=== PATIENT | female | born 1965 | race African-American/Black ===

== ENCOUNTER 2017-03-28 09:41 | Outpatient (CLI) ==
[2016-07-17 09:09] VITALS: BMI 24.9
[2017-03-28 10:15] LABS: BASOPHILS # (AUTO) 0.1 K/uL (0-0.2); BASOPHILS % (AUTO) 0.6 % (0.0-3.0); EOSINOPHILS # (AUTO) 0.3 K/ul (0.0-0.7); HEMATOCRIT 39.1 % (37.0-47.0); IMMATURE GRANULOCYTE % (AUTO) 0.4 % (0.0-5.0); LYMPHOCYTES % (AUTO) 24.4 (10.0-50.0); MEAN CORPUSCULAR HEMOGLOBIN 28.1 pg (27.0-31.0); MEAN CORPUSCULAR HGB CONC 33.2 (31.8-35.4); MEAN CORPUSCULAR VOLUME 84.6 fl (81.0-99.0); MONOCYTES # (AUTO) 0.5 K/uL (0.4-2.0); MONOCYTES % (AUTO) 5.7 (0-10); NEUTROPHILS # (AUTO) 5.4 K/ul (2.0-6.9); NEUTROPHILS % (AUTO) 65.9; PLATELET COUNT 325 10^3/uL (140-440); RED BLOOD COUNT 4.62 10^6/ul (4.20-5.40)
--- NOTE | 2017-03-28 10:19 | DI ---
EXAM: Chest two view, frontal and lateral views. HISTORY: Hypertension. COMPARISON: 07/17/2016. FINDINGS: The heart size is normal. Atherosclerotic calcifications noted. There is no pulmonary v ascular congestion. The lungs are clear. No pleural effusion or pneumothorax is seen. No acute os seous abnormality identified. Cholecystectomy clips noted. Since the prior study, there has been no significant interval change. IMPRESSION: No acute cardiopulmonary process.
[2017-03-28 11:04] LABS: ALBUMIN 4.1 g/dL (3.4-5.0); ALBUMIN/GLOBULIN RATIO 0.93; ANION GAP 15.9; BILIRUBIN,TOTAL 0.43 mg/dL (0.00-1.20); BUN/CREATININE RATIO 10.96; CALCIUM 10.2 mg/dL (8.2-10.2); CHOL/HDL RATIO 3.6 (4.5-5.5); CREATININE 1.55 mg/dL (0.60-1.30); POTASSIUM 3.9 mmol/L (3.5-5.10); TOTAL PROTEIN 8.5 g/dL (6.4-8.2)
== END 2017-03-28 09:42 | disposition home or self-care (01) ==
LOC: RAD 09:41
PROVIDERS: ATTEND Nurse Practitioner Family
DX: I10 Essential (primary) hypertension (principal); R42 Dizziness and giddiness; R11.2 Nausea with vomiting, unspecified; D64.9 Anemia, unspecified; E78.5 Hyperlipidemia, unspecified
CPT/HCPCS: 36415; 80053; 80061; 82150; 83690; 84439; 84443; 85025; 93005; 93010

== ENCOUNTER 2017-04-02 06:48 | Outpatient (CLI) ==
[2016-07-17 09:09] VITALS: BMI 24.9
--- NOTE | 2017-04-02 09:35 | STRESSECHO ---
Date of Test: 04/02/17 Reason for Exam: ABNORMAL EKG, T-WAVE ABNORMALITY, HTN , CHF Ordering Physician: Sarah WHITMAN Current Medications: HYDROXYZINE, MECLIZINE, PROMETHAZINE, LISINOPRIL, AMLODIPINE Resting EKG: SINUS RHYTHM/STRAIN PATTERN Target Heart Rate: 142/168 STAGE MPH/GRADE HEART RATE BPM BLOOD PRESSURE mmhg RHYTHM S-T SEGMENT +/- UP DOWN SYMPTOMS,COMMENTS At Rest 85 118/82 SR X NONE 1 1.7/10% 2 2.5/12% 3 3.4/14% 4 4.2/16% 5 5.0/18% Immediately after 144 148/90 SR X SHORT OF BREATH/FATIGUE Durations of Exercise: 3:00 Maximum Heart Rate Reached: 122 Reason for Termination: SHORT OF BREATH/FATIGUE 3 MIN POST EXERCISE: HR 122 BPM, BP 140/82 MMHG INTERPRETATION: 98% OXYGEN SATURATION WITH EXERCISE ON ROOM AIR 1. INCONCLUSIVE FOR ISCHEMIC ST-T WAVE CHANGES PATIENT HAS BASELINE ABNORMAL ST-T WAVE 2. POOR EXERCISE TOLERANCE 3. NO CHEST PAIN OR DISCOMFORT 4. NO ARRHYTHMIAS 5. BLOOD PRESSURE RESPONSE: ADEQUATE LEFT VENTRICULAR CONTRACTILITY--MILDLY HYPOKINETIC LEFT VENTRICLE AT REST AND WITH EXERCISE RECOMMEND: STRESS ECHO SESTAMIBI AND 2 "D" "M" MODE ECHO MTDD
--- NOTE | 2017-04-02 09:42 | ECHOSTRESS ---
Date of Exam: 04/02/17 Ordering Physician:LEEANN WATTS Reason for Echo: ABNORMAL EKG-T WAVE ABNORMALITY--STRESS TEST--INCONCLUSIVE M-Mode Normal Adult Results LV Dimensions Normal Adult Results AoV Opening excursions >1.6 LVEDD-base- 3.5-5.8 Ao root dimensions 2.0-3.7 LVESD-base- 3.1-4.6 L. Atrium dimensions 1.9-3.8 Post. Wall thickness 0.8-1.1 IV septum (thickness) 0.7-1.2 Post. Wall excursion 0.72-1.3 Septal motion Systolic motion R. Ventricular cavity 1.5-2.0 LVEF 60% Paradoxical septal wall motion 2-D: LEFT VENTRICULAR CONTRACTILITY--MILDLY HYPOKINETIC LEFT VENTRICLE AT REST AND WITH EXERCISE M-MODE: MV: AV: TV: PV: CHAMBER SIZE: WALL MOTION: LEFT VENTRICULAR CONTRACTILITY--MILDLY HYPOKINETIC LEFT VENTRICLE AT REST AND WITH EXERCISE PERICARDIUM: INTERPRETATION: 1. LEFT VENTRICULAR CONTRACTILITY--MILDLY HYPOKINETIC LEFT VENTRICLE AT REST AND WITH EXERCISE MTDD
== END 2017-04-02 06:49 | disposition home or self-care (01) ==
LOC: CAR 06:48
PROVIDERS: ATTEND Nurse Practitioner Family
DX: R94.31 Abnormal electrocardiogram [ECG] [EKG] (principal)

== ENCOUNTER 2017-04-07 06:34 | Outpatient (CLI) ==
[2016-07-17 09:09] VITALS: BMI 24.9
== END 2017-04-07 06:35 ==
LOC: CAR 06:34
PROVIDERS: ATTEND Nurse Practitioner Family
DX: R94.39 Abnormal result of other cardiovascular function study (principal)

== ENCOUNTER 2017-04-11 06:29 | Outpatient (CLI) ==
[2016-07-17 09:09] VITALS: BMI 24.9
--- NOTE | 2017-04-11 10:51 | NM ---
EXAM: Myocardial perfusion imaging HISTORY: Abnormal echocardiogram COMPARISON: None. TECHNIQUE: Patient was injected 4.2 mCi of thallium 201 chloride intravenously while at rest. SPECT imaging of the heart was acquired. Patient was stressed on a treadmill using Jerry protocol and at peak exercise injected 25.1 mCi of Tc99m Sestamibi intravenously. Another SPECT imaging of the hea rt was then acquired. Gated cardiac study was performed. FINDINGS: Post stress images show mildly prominent left ventricular cavity. There is moderately red uced perfusion in the region of the left ventricle apex and adjacent inferior wall which shows reper fusion on delayed imaging consistent with reversible ischemia. Inferior wall, septum and lateral wa lls show normal perfusion. No fixed defect is visualized. Left ventricular ejection fraction is 44 %. Mild generalized hypokinesis noted. IMPRESSION: 1. SPECT myocardial imaging shows exercise-induced reversible ischemia involving the left ventricle apex and contiguous anterior wall. 2. Left ventricular ejection fraction of 44%. Mild hypokinesis.
--- NOTE | 2017-04-14 12:47 | ECHOSTRESS ---
Date of Exam: 04/11/17 Ordering Physician: LEEANN WHITMAN Reason for Echo: ABNORMAL STRESS, T-WAVE ABNORMALITY, HYPERTENSION, CHF, STRESS TEST--INCONCLUSIVE M-Mode Normal Adult Results LV Dimensions Normal Adult Results AoV Opening excursions >1.6 LVEDD-base- 3.5-5.8 Ao root dimensions 2.0-3.7 LVESD-base- 3.1-4.6 L. Atrium dimensions 1.9-3.8 Post. Wall thickness 0.8-1.1 IV septum (thickness) 0.7-1.2 Post. Wall excursion 0.72-1.3 Septal motion Systolic motion R. Ventricular cavity 1.5-2.0 LVEF 60% Paradoxical septal wall motion 2-D: HYPOKINETIC LEFT VENTRICLE AT REST AND IMPROVED LEFT VENTRICLE CONTRACTILITY WITH EXERCISE M-MODE: MV: AV: TV: PV: CHAMBER SIZE: WALL MOTION: HYPOKINETIC LEFT VENTRICLE AT REST AND IMPROVED LEFT VENTRICLE CONTRACTILITY WITH EXERCISE PERICARDIUM: INTERPRETATION: 1. HYPOKINETIC LEFT VENTRICLE AT REST AND IMPROVED LEFT VENTRICLE CONTRACTILITY WITH EXERCISE MTDD
--- NOTE | 2017-04-14 13:07 | STECHESEMD ---
Date of Test: 04/11/17 Reason for Exam: ABNORMAL STRESS TEST--HYPERTENSION, CHF Ordering Physician: LEEANN WHITMAN Current Medications: HYDOXYZINE, MECLIZINE, PROMETHAZINE, LISINOPRIL, AMLODOPINE Physical Findings: S1, S2, NO S3 Resting EKG: SINUS RHYTHM/STRAIN PATTERN Target Heart Rate: 142/168 STAGE MPH/GRADE HEART RATE BPM BLOOD PRESSURE mmhg RHYTHM S-T SEGMENT UP DOWN SYMPTOMS,COMMENTS At Rest 75 112/70 SR X NONE 1 1.7/0% 130 130/70 SR X NONE 2 1.7/5% 3 1.7/10% 4 2.5/12% 5 3.4/14% Immediately after 150 SR X FATIGUE Total Time: 3:24 Maximum Heart Rate Reached: 150 Reason for Termination: FATIGUE 3 MINUTES POST EXERCISE: HR 110 BPM, BP 142/68 MMHG, SR, +/- INTERPRETATION: 97% OXYGEN SATURATION WITH EXERCISE ON ROOM AIR 1. INCONCLUSIVE FOR ISCHEMIC ST-T WAVE CHANGES PATIENT HAS BASELINE ABNORMAL ST-T WAVE CHANGES 2. NO CHEST PAIN OR CHEST DISCOMFORT 3. NO ARRHYTHMIAS 4. BLOOD PRESSURE RESPONSE NORMAL HYPOKINETIC LEFT VENTRICLE AT REST--IMPROVED LEFT VENTRICULAR CONTRACTILITY WITH EXERCISE SESTAMIBI TO FOLLOW MTDD
== END 2017-04-11 06:30 | disposition home or self-care (01) ==
LOC: CAR 06:29
PROVIDERS: ATTEND Nurse Practitioner Family
DX: R94.39 Abnormal result of other cardiovascular function study (principal)

== ENCOUNTER 2017-05-16 09:49 | Outpatient (CLI) ==
[2016-07-17 09:09] VITALS: BMI 24.9
[2017-05-16 10:33] LABS: BASOPHILS # (AUTO) 0.1 K/uL (0-0.2); BASOPHILS % (AUTO) 0.7 % (0.0-3.0); EOSINOPHILS # (AUTO) 0.4 K/ul (0.0-0.7); EOSINOPHILS % (AUTO) 4.7 % (0.0-7.0); HEMATOCRIT 36.5 % (37.0-47.0); HEMOGLOBIN 11.8 g/dl (12.0-16.0); IMMATURE GRANULOCYTE % (AUTO) 0.5 % (0.0-5.0); LYMPHOCYTES # (AUTO) 2.8 K/uL (0.60-3.4); LYMPHOCYTES % (AUTO) 31.1 (10.0-50.0); MEAN CORPUSCULAR HEMOGLOBIN 27.7 pg (27.0-31.0); MEAN CORPUSCULAR HGB CONC 32.3 (31.8-35.4); MEAN CORPUSCULAR VOLUME 85.7 fl (81.0-99.0); MONOCYTES # (AUTO) 0.6 K/uL (0.4-2.0); NEUTROPHILS # (AUTO) 5.1 K/ul (2.0-6.9); PLATELET COUNT 307 10^3/uL (140-440); RED BLOOD COUNT 4.26 10^6/ul (4.20-5.40)
--- NOTE | 2017-05-16 10:47 | US ---
EXAM: Ultrasound retroperitoneal complete. HISTORY: Chronic kidney disease. COMPARISON: None available. Abdominal CT 04/25/2016. TECHNIQUE: Multiple you scale and color Doppler images. FINDINGS: Right kidney measures 8.5 x 3.1 x 3.8 cm. The left kidney measures 9.7 x 3.7 x 3.4 cm. Echogenic structure within the right lower pole collecting system measures approximately 0.5 cm. Co rtical echogenicity is normal. There is no hydronephrosis. Urinary bladder is unremarkable. IMPRESSION: 1. No acute sonographic abnormality of the kidneys or bladder. 2. Right nephrolithiasis..
[2017-05-16 11:08] LABS: BILIRUBIN,URINE Negative (NEGATIVE); KETONES,URINE Negative (NEGATIVE); LEUKOCYTE ESTERASE ,URINE Negative (NEGATIVE); NITRITE,URINE Negative (NEGATIVE); PH,URINE 5.5 (5-9); PROTEIN,URINE Negative (NEGATIVE); URINE, BLOOD Negative (NEGATIVE)
[2017-05-16 11:11] LABS: ADD URINE MICROSCOPIC NO
[2017-05-16 14:42] LABS: ALBUMIN 3.7 g/dL (3.4-5.0); ALBUMIN/GLOBULIN RATIO 0.84; ANION GAP 17.8; BILIRUBIN,TOTAL 0.21 mg/dL (0.00-1.20); BUN/CREATININE RATIO 18.12; CALCIUM 9.9 mg/dL (8.2-10.2); CHOL/HDL RATIO 3.4 (4.5-5.5); CREATININE 1.49 mg/dL (0.60-1.30); MAGNESIUM 2.2 mg/dL (1.7-2.2); PHOSPHORUS 3.8 mg/dL (2.5-4.9); POTASSIUM 4.8 mmol/L (3.5-5.10); TOTAL PROTEIN 8.1 g/dL (6.4-8.2); URIC ACID 5.5 mg/dL (2.4-6.0)
[2017-05-17 06:12] LABS: URINE CREATINE 116.5 mg/dL (Not Estab.)
[2017-05-18 14:53] LABS: URINE PROTEIN/CREATININE RATIO 167 mg/g creat (0-200)
[2017-05-19 11:33] LABS: ANTI-NUCLEAR ANTIBODY SCREEN Negative (Negative)
[2017-05-19 14:32] LABS: COMPLEMENT C4 33 mg/dL (14-44)
[2017-05-19 15:16] LABS: ANTIMYELOPEROXIDASE ABS < 9.0 U/mL (0.0-9.0); ANTIPROTEINASE 3 ABS < 3.5 U/mL (0.0-3.5)
== END 2017-05-16 09:50 | disposition home or self-care (01) ==
LOC: RAD 09:49
PROVIDERS: ATTEND Internal Medicine Nephrology
DX: I10 Essential (primary) hypertension (principal); E78.5 Hyperlipidemia, unspecified; D64.9 Anemia, unspecified; Z72.0 Tobacco use; N18.3 Chronic kidney disease, stage 3 (moderate)
CPT/HCPCS: 36415; 76770; 80053; 80061; 81001; 82306; 82570; 83520; 83735; 83970; 84100; 84156; 84550; 85025; 86038; 86160; 86256; 86320; 87205

== ENCOUNTER 2017-06-05 20:53 | Outpatient (CLI) ==
[2016-07-17 09:09] VITALS: BMI 24.9
== END 2017-06-05 20:54 ==
LOC: AMBL 20:53
PROVIDERS: ATTEND Family Medicine
DX: R07.9 Chest pain, unspecified (principal); R00.0 Tachycardia, unspecified

== ENCOUNTER 2017-08-06 15:58 | Outpatient (CLI) ==
[2016-07-17 09:09] VITALS: BMI 24.9
--- NOTE | 2017-08-06 16:45 | DI ---
EXAM: KUB. History: Abdominal pain. Comparison: CT abdomen pelvis 04/25/2016 Findings: Status post cholecystectomy. Nonspecific but nonobstructive bowel gas pattern. Scattered colonic stool. 8 mm calcification projecting over the right renal shadow. No acute osseous abnorma lities. No free intraperitoneal air. Impression: 1. Nonspecific but nonobstructive bowel gas pattern. 2. Right nephrolithiasis. If pain persists, recommend further evaluation with CT.
--- NOTE | 2017-08-06 16:47 | DI ---
EXAM: Five views of the lumbar spine. History: Lower back pain. Findings: Cholecystectomy clips. 8 mm calcification projecting over the mid right kidney and 5 mm c alcification seen projecting over the lower right kidney. No acute fracture or subluxation of the estee mbar spine. Atherosclerotic vascular calcifications. Mild disc space narrowing at L2-L3 with small anterior osteophytes. Impression: 1. No acute osseous abnormality of the lumbar spine. 2. Mild degenerative disc disease at L2-L3. 3. Atherosclerotic vascular calcifications. 4. Right nephrolithiasis.
== END 2017-08-06 15:59 | disposition home or self-care (01) ==
LOC: LAB 15:58
PROVIDERS: ATTEND Nurse Practitioner Family
DX: M25.473 Effusion, unspecified ankle (principal); R10.9 Unspecified abdominal pain; M54.5 Low back pain
CPT/HCPCS: 36415; 83880

== ENCOUNTER 2017-10-18 12:21 | Emergency (ER) ==
[2017-10-18 12:27] VITALS: BP 136/85; TEMP 98.3; BMI 27.8
--- NOTE | 2017-10-18 12:53 | ED.PDOC ---
General ED Provider: Dr. JHONNY CHU Chief Complaint: Non-specific Complaint Stated Complaint: pateint is a 52 year old female who comes to the Er with a one week history of intermittent left thigh pain radiating to the Left foot causeing some numbness. The today felt the same on the right with radiation to the foot also. Took some Tylenol but has not worked. Time Seen by Physician: 12:35 Mode of Arrival: Walk-In Information Source: Patient Exam Limitations: No limitations Primary Care Provider: LEEANN MARIN Nursing and Triage Documentation Reviewed and Agree: Yes Reviewed sepsis parameters & appropriate labs ordered?: Yes System Inflammatory Response Syndrome: Not Applicable Sepsis Protocol: For patient's 13 years and over: Temp is 96.8 and below OR 101 and greater Pulse >90 BPM Resp >20/minute Acutely Altered Mental Status Are patient's symptoms suggestive of a new infection, such as: -Pneumonia -Skin, Soft Tissue -Endocarditis -UTI -Bone, Joint Infection -Implantable Device -Acute Abdominal Infection -Wound Infection -Meningitis -Blood Stream Catheter Infection -Unknown Review of Systems - Review Of Systems Constitutional: Reports: No symptoms Eyes: Reports: No symptoms Ears, Nose, Mouth, Throat: Reports: No symptoms Respiratory: Reports: No symptoms Cardiac: Reports: No symptoms GI: Reports: No symptoms : Reports: No symptoms Musculoskeletal: Reports: Muscle pain Skin: Reports: No symptoms Neurological: Reports: No symptoms Endocrine: Reports: No symptoms Hematologic/Lymphatic: Reports: No symptoms All Other Systems: Reviewed and Negative Past Medical History - Past Medical History Previously Healthy: Yes Endocrine: Reports: Dyslipidemia Cardiovascular: Reports: Hypertension, CHF (Long time ago no symtoms ) Respiratory: Reports: None Hematological: Reports: Anemia Gastrointestinal: Reports: None Genitourinary: Reports: None Neuro/Psych: Reports: Seizure Musculoskeletal: Reports: None Cancer: Reports: None Last Menstrual Period: n/a - Surgical History General Surgical History: Reports: Cholecystectomy (htn sz eczema cce 05/28), Unknown - Family History Family History: Reports: Unknown - Social History Smoking Status: Former smoker Hx Substance Use: No Alcohol Screening: None Physical Exam - Physical Exam Appearance: Ill-appearing Pain Distress: Moderate Eyes: LACEY, EOMI, Conjunctiva clear ENT: Ears normal, Nose normal, Oropharynx normal Neck: Supple Respiratory: Airway patent, Breath sounds clear, Breath sounds equal, Respirations nonlabored Cardiovascular: RRR, Pulses normal, No rub, No murmur GI/: Soft, Nontender, No masses, Bowel sounds normal, No Organomegaly Musculoskeletal: Normal strength, ROM intact, No edema, No calf tenderness Skin: Warm, Dry, Normal color Neurological: Sensation intact, Motor intact, Reflexes intact, Cranial nerves intact, Alert, Oriented Psychiatric: Affect appropriate, Mood appropriate Re-Evaluation - Re-Evaluation Time of Re-Evaluation: 14:32 Status: Improved Pain Level: 2 Critical Care Note - Critical Care Note Total Time (mins): 0 Course - Course Hematology/Chemistry: 10/18/17 12:54 10/18/17 12:54 Orders, Labs, Meds: Lab Review 10/18/17 10/18/17 10/18/17 12:54 12:54 12:54 WBC 8.68 RBC 4.10 L Hgb 11.5 L Hct 35.2 L MCV 85.9 MCH 28.0 MCHC 32.7 RDW Coeff of Josephine 15.2 H Plt Count 346 Immature Gran % (Auto) 0.5 Neut % (Auto) 54.3 Lymph % (Auto) 33.4 Rains % (Auto) 6.9 Eos % (Auto) 4.1 Baso % (Auto) 0.8 Immature Gran # (Auto) 0.0 Neut # 4.7 Lymph # 2.9 Rains # 0.6 Eos # 0.4 Baso # 0.1 D-Dimer (Manual) 883.97 Sodium 142 Potassium 4.4 Chloride 108 H Carbon Dioxide 25 Anion Gap 13.4 BUN 21 H Creatinine 1.38 H Estimated GFR (MDRD) 48.00 BUN/Creatinine Ratio 15.21 Glucose 97 Calcium 10.3 H Total Bilirubin < 0.3 AST 17 ALT 16 Alkaline Phosphatase 84 Total Protein 7.9 Albumin 3.5 Globulin 4.4 Albumin/Globulin Ratio 0.80 Orders Category Date Time Status CBC W/ AUTO DIFF Stat LAB 10/18/17 12:54 Completed COMPREHENSIVE METABOLIC PANEL Stat LAB 10/18/17 12:54 Completed D-DIMER Stat LAB 10/18/17 12:54 Completed Dexamethasone 4 mg/ml Inj [Decadron 4 mg/ml Sdv] MEDS 10/18/17 12:55 Discontinued 8 mg IM ONCE STA Meperidine HCl/Pf [Demerol 25 mg/ml Vial] MEDS 10/18/17 12:56 Discontinued 25 mg IM ONCE STA Promethazine HCl [Phenergan 25 mg/ml Vial] MEDS 10/18/17 12:56 Discontinued 25 mg IM ONCE STA Medications Discontinued Medications Generic Name Dose Route Start Last Admin Trade Name Freq PRN Reason Stop Dose Admin Dexamethasone Sodium Phosphate 8 mg 10/18/17 12:55 10/18/17 13:45 Decadron 4 Mg/Ml Sdv IM 10/18/17 12:56 8 mg ONCE STA Administration Meperidine HCl 25 mg 10/18/17 12:56 10/18/17 13:46 Demerol 25 Mg/Ml Vial IM 10/18/17 12:57 25 mg ONCE STA Administration Promethazine HCl 25 mg 10/18/17 12:56 10/18/17 13:46 Phenergan 25 Mg/Ml Vial IM 10/18/17 12:57 25 mg ONCE STA Administration Vital Signs: Temp Pulse Resp BP Pulse Ox 10/18/17 12:25 98.3 F 100 H 16 136/85 98 Departure - Departure Time of Disposition: 14:31 Disposition: HOME SELF-CARE Discharge Problem: Leg cramps Instructions: Leg Cramps (ED) Condition: Fair Pt referred to PMD for follow-up: Yes Additional Instructions: Take medications as prescribed Follow up with PCP in 3 days Rest Prescriptions: Hydrocodone/Acetaminophen [[place] 5-325 Tablet] 1 tab PO Q6HR PRN #12 tablet PRN Reason: PAIN Methylprednisolone [Medrol Dosepak] 4 mg PO DIRECTED #1 pkg Allergies/Adverse Reactions: Allergies NSAIDS (Non-Steroidal Anti-Inflamma Allergy (Verified 10/18/17 12:28) Patient has Stage 3 CKD ceftriaxone sodium [From Rocephin] Adverse Reaction (Verified 10/18/17 12:28) makes her sleepy Home Medications: Ambulatory Orders Lamotrigine 150 mg PO BID 07/31/15 Levetiracetam [Levetiracetam Er] 1,000 mg PO DIRECTED 07/31/15 Nortriptyline HCl 75 mg PO DAILY 03/26/17 Aspirin 81 mg PO ONCE 08/06/17 Metoprolol Succinate 25 mg PO BEDTIME 08/06/17 Nitroglycerin 0.4 mg PO ONCE tab-cap 08/06/17 Hydrocodone/Acetaminophen [[place] 5-325 Tablet] 1 tab PO Q6HR PRN #12 tablet 03/30 Methylprednisolone [Medrol Dosepak] 4 mg PO DIRECTED #1 pkg 10/18/17 Multivitamin 1 cap PO DAILY 10/18/17 Disposition Discussed With: Patient
[2017-10-18] MEDS ORDERED: DECADRON 4 MG/ML SDV IM STA (12:55)
[2017-10-18] MEDS ORDERED: DEMEROL 25 MG/ML VIAL IM STA (12:56)
[2017-10-18] MEDS ORDERED: PHENERGAN 25 MG/ML VIAL IM STA (12:56)
== END 2017-10-18 15:32 | disposition home or self-care (01) ==
LOC: ED 12:21
DX: R25.2 Cramp and spasm (principal); E78.5 Hyperlipidemia, unspecified; I10 Essential (primary) hypertension; D64.9 Anemia, unspecified; Z79.899 Other long term (current) drug therapy
CPT/HCPCS: 36415; 80053; 85025; 85379; 96372; 99283